=== PATIENT | female | born 1985 | race Caucasian/White ===

== ENCOUNTER 2023-10-09 08:59 | Emergency (ER) | payer OTHER, SELFPAY ==
[2023-10-09 09:19] VITALS: BP 151/81; PULSE 62; RESP 17; O2SAT 100; BMI 40.4
--- NOTE | 2023-10-09 11:41 | ED.SKABFB ---
HPI - Skin/Abscess/Foreign Bdy General Chief complaint: Skin/Abscess/Foreign Body Stated complaint: Cyst on genitals Time Seen by Provider: 10/09/23 11:41 Source: patient Mode of arrival: Ambulatory Limitations: no limitations History of Present Illness HPI narrative: 38-year-old female no reported medical issues on daily as her only medication. Patient complains of a sister area of swelling on the left labia minora. Patient states it started a couple days ago has become increasingly painful and larger. It started having some drainage this morning that she describes as sort of white and creamy with a little bit of blood. She did not have any improvement in pain when it started draining. She denies fevers or chills. No chest pain or shortness of breath, no abdominal back or flank pain. No nausea or vomiting. No difficulties with urination. She has had normal bowel movements. She states she is at the end of her menses. She has not had similar symptoms in the past. She did take some Tylenol last night which allowed her to sleep. She defers anything for pain currently. She states no prescription medications other than a vitamin. No known drug allergies. Denies any recent surgeries. No tobacco, no regular alcohol, no recreational drugs. Related Data Home Medications Medication Instructions Recorded Confirmed vits 75-iron 28 mg-folic 1 pkg PO DAILY 10/09/23 10/09/23 acid 800 mcg-omega3 440 mg oral pack Previous Rx's Medication Instructions Recorded sulfamethoxazole 800 1 tab PO Q12H #14 tabs 10/09/23 mg-trimethoprim 160 mg tablet (Bactrim DS) tramadol 50 mg tablet 50 mg PO Q6H PRN pain #10 tabs 10/09/23 Allergies Allergy/AdvReac Type Severity Reaction Status Date / Time No Known Drug Allergies Allergy Verified 10/09/23 09:22 Review of Systems Review of Systems ROS Unobtainable: All systems reviewed & are unremarkable except as noted in HPI and below Patient History Medical History Solar lentigo Social History Smoking Status: Never smoker Smoking Status: Never smoker alcohol intake frequency: other Substance Use Type: does not use Exam Narrative Exam Narrative: GENERAL: Alert and oriented x three, female in mild distress. HEENT: Head normocephalic, atraumatic, EOMI, pupils reactive, face symmetric, moist mucous membranes NECK: Supple, full range of motion CARDIOVASCULAR: Regular rate and rhythm without murmurs, rubs or gallops. RESPIRATORY: Breath sounds equal bilaterally, no wheezes rales or rhonchi. ABDOMEN: Soft, nontender. Normoactive bowel sounds all 4 quadrants. No guarding or rebound, rigidity, no mass : No CVA tenderness. Female: external vaginal exam shows swelling of the left labia minora, there is an area of fluctuance at the 9 o'clock position that is tender to touch. There is some generalized swelling tracking upwards along the edge. Patient does not have any other tenderness of the vulva or internal vagina. There is a few small punctate areas that are draining purulent fluid but no open area of drainage. no vaginal bleeding, no discharge, EXTREMITIES: Normal range of motion, no clubbing or edema. Neurovascularly intact. NEUROLOGICAL: Cranial nerves II through XII grossly intact. Normal gait. SKIN: Warm, dry, no petechiae, no rashes or lesions other than noted above. Initial Vital Signs Initial Vital Signs: Vital Signs Pulse Rate 62 10/09/23 09:19 Respiratory Rate 17 10/09/23 09:19 Blood Pressure 151/81 H 10/09/23 09:19 Pulse Oximetry 100 10/09/23 09:19 Oxygen Delivery Method Room Air 10/09/23 09:19 Procedures Abscess I/D I&D #1: Site: bartholin's gland (left) Side (if applicable): left Sedation/analgesia: none Local Anesthetic: lidocaine 2% Amount of anesthesia used (mL): 4 Technique: incised with #11 blade Amount of fluid expressed (mL): 10 Irrigation: Yes Packing used?: none Course Orders Ordered: Discontinued Medications Lidocaine/Prilocaine (Lidocaine/Prilocaine 5 Gm) 5 gm TOP NOW ONE Stop: 10/09/23 12:14 Last Admin: 10/09/23 12:24 Dose: 5 gm Documented By: ISABEL Vital Signs Vital signs: Vital Signs - 8 hr 10/09/23 09:19 10/09/23 14:10 Pulse Rate 62 71 Respiratory Rate 17 18 Blood Pressure 151/81 H 119/65 Pulse Oximetry 100 98 Oxygen Delivery Method Room Air Room Air MDM - Skin/Abscess/Foreign Bdy MDM Narrative Medical decision making narrative: 38-year-old female who appears to have a infected Bartholin gland cyst on her left. Patient gave verbal consent and had incision and drainage and started on oral antibiotics. Patient had I&D with purulent fluid Bartholin gland cyst which appears infected. Patient is started on oral antibiotics script for short term pain medication. Discussed return precautions. Need for follow-up long-term treatment including possible marsupialization. Discharge Plan Departure Patient Disposition: Home Clinical Impression: Abscess of Bartholin's gland Instructions: DI for Bartholin Gland Cyst Activity Restrictions/Additional Instructions: Follow up in the next week. Please call to set up an appointment. Bartholin gland cyst or abscess his can reoccur and we will sometimes be treated with a procedure called marsupialization, follow up with OBGYN to see if you need to be candidate for this. You can take Tylenol up to a 1000 mg every 6 hours and/or ibuprofen up to 600 mg every 6 hours as needed for pain. If inadequate for pain you can take 1-2 tablets of tramadol every 6 hours as needed for pain. This medication can make you sleepy do not drive, perform hazardous activities or make any major decisions while taking it. This medication will make you constipated please take a stool softener once to twice daily until stools are soft and regular. Use warm compresses to the affected areas or Sitz baths 3-4 times daily. Take oral antibiotics until completed. Prescription sent to [facility] in [place] Please return for fevers increasing redness, swelling, rapidly worsening drainage or bleeding, new abdominal back or flank pain, difficulty with urination or other new or concerning changes. Prescriptions: New sulfamethoxazole-trimethoprim [Bactrim DS] 800-160 mg tablet 1 tab PO Q12H Qty: 14 0RF tramadol 50 mg tablet 50 mg PO Q6H PRN (Reason: pain) Qty: 10 0RF No Action Daily 28-800-440 mg-mcg-mg Combo Pack 1 pkg PO DAILY Referrals: Aisha Hernandez MD [Primary Care Provider] - Kristine Del Cid MD [Physician] - Stand Alone Forms: Patient Portal/API
[2023-10-09] MEDS: LIDOCAINE/PRILOCAINE 5 GM TOP (12:24)
[2023-10-09 14:10] VITALS: BP 119/65; PULSE 71; RESP 18; O2SAT 98
== END 2023-10-09 14:29 | disposition home or self-care (01) ==
PROVIDERS: Emergency Provider Emergency Medicine; PCP Family Medicine
DX: N75.1 Abscess of Bartholin's gland (principal)
CPT/HCPCS: 56420; 99282; 99283

== ENCOUNTER → 2023-10-30 12:12 | Outpatient (CLI) | payer OTHER, SELFPAY ==
[2023-10-30 13:15] LABS: Add Manual Diff / Slide Review NO; Basophils Absolute Auto 100 /uL (0-100); Basophils Percent Auto 0.7 % (0-2); Eosinophils Absolute Auto 300 /uL (0-450); Eosinophils Percent Auto 3.6 % (2-4); Hematocrit 38.6 % (36-46); Lymphocytes Absolute Auto 2500 /uL (1100-4500); Lymphocytes Percent Auto 31.2 % (25-40); Mean Corpuscular HGB Conc 33.6 % (30-36); Mean Corpuscular Hemoglobin 30.1 PG (26-34); Mean Corpuscular Volume 89.5 fL (80-100); Monocytes Absolute Auto 500 /uL (0-900); Monocytes Percent Auto 5.8 % (3-14); Neutrophils Absolute Auto 4700 /uL (1500-7000); Neutrophils Percent Auto 58.7 % (50-75); Platelet Count 307 X10^3/uL (150-400); Red Blood Cell Count 4.32 X10^6/uL (4.0-5.2); Red Cell Distribution Width 13.5 % (11.6-14.8)
== END ==
LOC: LAB 12:14
PROVIDERS: PCP Family Medicine; Referring Provider Family Medicine; Visit Provider Family Medicine
DX: Z13.1 Encounter for screening for diabetes mellitus (principal); D64.9 Anemia, unspecified
CPT/HCPCS: 36415; 83036; 85025

== ENCOUNTER → 2024-01-24 13:14 | Outpatient (CLI) | payer OTHER, SELFPAY ==
[2024-01-24 17:08] LABS: HCG Quantitative /Beta subunit < 2.39 mIU/mL
== END ==
PROVIDERS: PCP Family Medicine; Referring Provider Family Medicine; Visit Provider Family Medicine
DX: O20.0 Threatened abortion (principal)
CPT/HCPCS: 36415; 84702

== ENCOUNTER → 2024-03-05 15:27 | Outpatient (CLI) | payer OTHER, SELFPAY ==
[2024-03-05 17:31] LABS: Add Manual Diff / Slide Review NO; Basophils Absolute Auto 100 /uL (0-100); Basophils Percent Auto 0.5 % (0-2); Eosinophils Absolute Auto 400 /uL (0-450); Eosinophils Percent Auto 4.2 % (2-4); Hematocrit 41.1 % (36-46); Hemoglobin 13.6 g/dL (12.0-16.0); Lymphocytes Absolute Auto 3200 /uL (1100-4500); Lymphocytes Percent Auto 31.1 % (25-40); Mean Corpuscular Hemoglobin 29.3 PG (26-34); Mean Corpuscular Volume 88.6 fL (80-100); Monocytes Absolute Auto 500 /uL (0-900); Monocytes Percent Auto 5.2 % (3-14); Neutrophils Absolute Auto 6100 /uL (1500-7000); Platelet Count 361 X10^3/uL (150-400); Red Blood Cell Count 4.64 X10^6/uL (4.0-5.2); Red Cell Distribution Width 13.2 % (11.6-14.8); White Blood Cell Count 10.4 X10^3/uL (4.5-11.0)
[2024-03-05 18:31] LABS: Follicle Stimulating Hormone 2.98 mIU/mL
[2024-03-05 18:40] LABS: Free T4, Direct Thyroxine 1.05 ng/dL (0.78-2.19)
[2024-03-05 18:41] LABS: Prolactin 13.7 ng/mL (3.0-18.6)
[2024-03-05 18:46] LABS: Estradiol, Total 76.8 pg/mL
[2024-03-05 18:54] LABS: Thyroid Stimulating Hormone 1.86 uIU/mL (0.47-4.68)
== END ==
PROVIDERS: PCP Family Medicine; Referring Provider Family Medicine; Visit Provider Family Medicine
DX: Z31.69 Encounter for other general counseling and advice on procreation (principal); N97.9 Female infertility, unspecified
CPT/HCPCS: 36415; 82397; 82670; 83001; 84146; 84439; 84443; 85025

== ENCOUNTER → 2024-04-18 10:51 | Outpatient (CLI) | payer OTHER, SELFPAY ==
[2024-04-18 12:14] LABS: HCG Quantitative /Beta subunit 9715.3 mIU/mL
== END ==
LOC: LAB 10:51
PROVIDERS: PCP Family Medicine; Referring Provider Family Medicine; Visit Provider Family Medicine
DX: Z34.90 Encounter for supervision of normal pregnancy, unspecified, unspecified trimester (principal)
CPT/HCPCS: 36415; 84702

== ENCOUNTER → 2024-04-20 12:46 | Outpatient (CLI) | payer OTHER, SELFPAY ==
[2024-04-20 14:26] LABS: HCG Quantitative /Beta subunit 16001 mIU/mL
== END ==
PROVIDERS: PCP Family Medicine; Referring Provider Family Medicine; Visit Provider Family Medicine
DX: Z32.00 Encounter for pregnancy test, result unknown (principal)
CPT/HCPCS: 36415; 84702

== ENCOUNTER 2024-04-21 12:24 | Emergency (ER) | payer OTHER, SELFPAY ==
[2024-04-21 12:29] VITALS: BP 110/57; PULSE 80; RESP 16; TEMP 36.6; O2SAT 100; BMI 40.6
--- NOTE | 2024-04-21 12:53 | DI.US.S_ITS ---
PROCEDURE: US OB <= 14 WEEKS FETUS INDICATIONS: 6 weeks OUTSIDE/PRIOR DATING DATA: Last menstrual period (LMP): 03/10/2024. LMP-based estimated date of delivery (MEL): 12/15/2024. First dating scan (date and location): 04/21/2024. Estimated date of delivery (MEL) from first dating scan: Applicable. TECHNIQUE: Real-time scanning was performed of the fetus and maternal pelvic organs, with image documentation. Endovaginal scanning was also performed to better visualize the fetus and maternal ovaries. COMPARISON: None. FINDINGS: Embryo: An intrauterine gestational sac is seen, measuring 1.2 cm, which corresponds to an estimated gestational age of 6 weeks 0 days. There is a normal appearing yolk sac. No definite pole can be seen at this time. Maternal organs: A 4.5 cm right ovarian cyst is seen, without suspicious features. IMPRESSION: Intrauterine gestational sac, yet without a pole seen at this time. The imaging appearance is most consistent with a normal early . Close clinical followup, with serial beta-hCG and serial ultrasound are recommended, if clinically appropriate. We strive to produce accurate, complete, and clear reports of imaging services. To assist us in improving patient care, this report was composed using standard report templates and voice recognition software. Therefore, it may contain abnormal punctuation, insertions and/or omissions. Occasional wrong-word or sound-alike substitutions may occur. Though we review the report and make efforts to correct it, we do recommend that the report be read carefully in proper context to recognize any text inaccuracies. Dictated by: Speedy Chan M.D. on 04/21/2024 at 13:04 Approved by: Speedy Chan M.D. on 04/21/2024 at 13:06
[2024-04-21 13:13] LABS: Add Manual Diff / Slide Review NO; Basophils Absolute Auto 100 /uL (0-100); Basophils Percent Auto 0.7 % (0-2); Eosinophils Absolute Auto 400 /uL (0-450); Eosinophils Percent Auto 3.9 % (2-4); Hemoglobin 13.4 g/dL (12.0-16.0); Lymphocytes Absolute Auto 2700 /uL (1100-4500); Lymphocytes Percent Auto 28.1 % (25-40); Mean Corpuscular HGB Conc 32.7 % (30-36); Mean Corpuscular Hemoglobin 29.1 PG (26-34); Mean Corpuscular Volume 88.9 fL (80-100); Monocytes Absolute Auto 700 /uL (0-900); Monocytes Percent Auto 7.6 % (3-14); Neutrophils Absolute Auto 5700 /uL (1500-7000); Neutrophils Percent Auto 59.7 % (50-75); Platelet Count 348 X10^3/uL (150-400); Red Blood Cell Count 4.61 X10^6/uL (4.0-5.2); Red Cell Distribution Width 13.9 % (11.6-14.8); White Blood Cell Count 9.6 X10^3/uL (4.5-11.0)
[2024-04-21 13:20] LABS: Alanine Aminotransferase 19 IU/L (<35); Albumin 4.4 g/dL (3.5-5.0); Albumin Globulin Ratio 1.7 (1.0-2.8); Alkaline Phosphatase 53 U/L (38-126); Aspartate Aminotransferase 20 IU/L (14-36); BUN Creatinine Ratio 9.2 (6-22); Bilirubin Total 0.5 mg/dL (0.2-1.3); Blood Urea Nitrogen 7 mg/dL (7-17); Carbon Dioxide 25 mmol/L (22-32); Chloride 106 mmol/L (98-107); Estimated Glomerular Filt Rate > 60 mL/min (>60); Globulin 2.6 g/dL (1.7-4.1); Glucose 85 mg/dL (70-100); HEMOLYSIS < 15 (0-50); Potassium 4.1 mmol/L (3.4-5.1); Sodium 137 mmol/L (137-145)
[2024-04-21 14:01] LABS: HCG Quantitative /Beta subunit 21569 mIU/mL
[2024-04-21 14:02] LABS: RBC Urine 0-1/HPF (0-5/HPF); Urine Volume 10mL (spun); WBC Urine 0-1/HPF (0-5/HPF)
[2024-04-21 14:03] LABS: Bacteria Urine Few (2-10); Culture Indicated Urine Cult Not Indicated; Squamous Epithelial Cell Urine 0-1 /HPF (0-5/HPF)
[2024-04-21 14:17] VITALS: BP 108/66; PULSE 64; RESP 16; O2SAT 98
--- NOTE | 2024-04-21 14:18 | ED_ITS ---
HPI - General Adult General Chief complaint: Vaginal Bleeding Stated complaint: 6wks , Miscarraige Concerns Time Seen by Provider: 04/21/24 14:18 Source: patient Mode of arrival: Ambulatory History of Present Illness HPI narrative: 38-year-old female with OB history SAB 1, last menstrual period she believes was 03/10/2024, MEL 12/15/2024, believes she is about 6 weeks gestation, with care by Dr. Hernandez, has had vaginal spotting symptoms for 6 days, recent serum hormone level 9000 drawn 3 days ago, hormone level 16,000 yesterday. Now having increased vaginal spotting some of some cramping. No fevers or chills. Related Data Home Medications Medication Instructions Recorded Confirmed vits 75-iron 28 mg-folic 1 pkg PO DAILY 10/09/23 04/21/24 acid 800 mcg-omega3 440 mg oral pack coenzyme Q10 100 mg capsule 100 mg PO DAILY 04/21/24 04/21/24 (CoQ-10) fluticasone propionate 50 50 mcg intranasal DAILY 04/21/24 04/21/24 mcg/actuation nasal spray,suspension (Flonase Allergy Relief) loratadine 10 mg tablet (Claritin) 10 mg PO DAILY 04/21/24 04/21/24 omega-3 fatty acids PO 04/21/24 Allergies Allergy/AdvReac Type Severity Reaction Status Date / Time No Known Drug Allergies Allergy Verified 02/28/24 08:46 Patient History Medical History (Updated 04/21/24 @ 15:49 by Hansel Bowman MD) Infertility Solar lentigo Social History Smoking Status: Never smoker Smoking Status: Never smoker alcohol intake frequency: other Exam Narrative Exam Narrative: GENERAL: Well-developed patient, in mild distress. HEAD: Atraumatic. Normocephalic. EYES: Pupils equal round and reactive. Extraocular motions intact. No scleral icterus. No injection or drainage. ENT: Nose without bleeding, purulent drainage. Airway patent. NECK: Trachea midline. CARDIOVASCULAR: Regular rate and rhythm without murmurs, gallops, or rubs. RESPIRATORY: Clear to auscultation. Breath sounds equal bilaterally. No wheezes, rales, or rhonchi. GASTROINTESTINAL: Abdomen soft, non-tender, nondistended. EXTREMITIES: No edema or joint tenderness. NEURO: AOx3. Motor functions grossly nonfocal SKIN: No rash or erythema of visible areas Initial Vital Signs Initial Vital Signs: Vital Signs Temperature 97.8 F 04/21/24 12:29 Pulse Rate 80 04/21/24 12:29 Respiratory Rate 16 04/21/24 12:29 Blood Pressure 110/57 L 04/21/24 12:29 Pulse Oximetry 100 04/21/24 12:29 Oxygen Delivery Method Room Air 04/21/24 12:29 Course Orders Ordered: ED Orders 04/21/24 12:53 US OB <= 14 weeks fetus Stat 04/21/24 13:00 Complete Blood Count AUTO DIFF Stat Comprehensive Metabolic Panel Stat HCG Quantitative /Beta subunit Stat 04/21/24 13:26 Urine Microscopic Stat 04/21/24 14:05 Type and Screen Stat Vital Signs Vital signs: Vital Signs - 8 hr 04/21/24 12:29 04/21/24 14:17 04/21/24 15:57 Temperature 97.8 F Pulse Rate 80 64 72 Respiratory Rate 16 16 16 Blood Pressure 110/57 L 108/66 107/62 Pulse Oximetry 100 98 99 Oxygen Delivery Method Room Air Room Air Room Air Medical Decision Making Lab Data Lab results reviewed: Yes I reviewed the patient's lab results. Lab results narrative: White blood cell count 9600, hemoglobin 13.4, platelets adequate. Basic metabolic panel unremarkable. Serum hCG today 81493 04/21/24 13:00 04/21/24 13:00 Labs: Lab Results 04/21/24 04/21/24 04/21/24 Range/Units 13:00 13:26 14:05 WBC 9.6 (4.5-11.0) X10^3/uL RBC 4.61 (4.0-5.2) X10^6/uL Hgb 13.4 (12.0-16.0) g/dL Hct 41.0 (36-46) % MCV 88.9 (80-100) fL MCH 29.1 (26-34) PG MCHC 32.7 (30-36) % RDW 13.9 (11.6-14.8) % Plt Count 348 (150-400) X10^3/uL Neut % (Auto) 59.7 (50-75) % Lymph % (Auto) 28.1 (25-40) % [place] % (Auto) 7.6 (3-14) % Eos % (Auto) 3.9 (2-4) % Baso % (Auto) 0.7 (0-2) % Neut # (Auto) 5700 (9932-2819) /uL Lymph # (Auto) 2700 (0719-9530) /uL [place] # (Auto) 700 (0-900) /uL Eos # (Auto) 400 (0-450) /uL Baso # (Auto) 100 (0-100) /uL Sodium 137 (137-145) mmol/L Potassium 4.1 (3.4-5.1) mmol/L Chloride 106 (98-107) mmol/L Carbon Dioxide 25 (22-32) mmol/L BUN 7 (7-17) mg/dL Creatinine 0.76 (0.52-1.04) mg/dL Estimated GFR > 60 (>60) mL/min BUN/Creatinine Ratio 9.2 (6-22) Glucose 85 (70-100) mg/dL Calcium 9.0 (8.4-10.2) mg/dL Total Bilirubin 0.5 (0.2-1.3) mg/dL AST 20 (14-36) IU/L ALT 19 (<35) IU/L Alkaline Phosphatase 53 (38-126) U/L Total Protein 7.0 (6.3-8.2) g/dL Albumin 4.4 (3.5-5.0) g/dL Globulin 2.6 (1.7-4.1) g/dL Albumin/Globulin Ratio 1.7 (1.0-2.8) HCG, Quant 70105 mIU/mL Urine RBC 0-1/hpf (0-5/HPF) Urine WBC 0-1/hpf (0-5/HPF) Ur Squamous Epith Cells 0-1 /hpf (0-5/HPF) Urine Bacteria Few (2-10) H (None) Ur Culture Indicated? Cult not indicated Vol Urine Centrifuged 10ml (spun) Blood Type A Positive Antibody Screen Negative Urine Dip Bedside Urine Glucose Negative Bedside Urine Bilirubin - Negative Bedside Urine Ketone - Negative Urine Specific [place] 1.015 Bedside Urine Occult Blood + Bedside Urine pH 6.0 Bedside Urine Protein - Negative Bedside Urine Urobilinogen - Negative Bedside Urine Nitrite - Negative Bedside Urine Leukocytes - Negative Esterase Point of care testing: Urine Dip Bedside Urine Glucose Negative Bedside Urine Bilirubin - Negative Bedside Urine Ketone - Negative Urine Specific [place] 1.015 Bedside Urine Occult Blood + Bedside Urine pH 6.0 Bedside Urine Protein - Negative Bedside Urine Urobilinogen - Negative Bedside Urine Nitrite - Negative Bedside Urine Leukocytes - Negative Esterase Imaging Data Pelvic ultrasound: Radiologist's Impression: [address] [id number] Ultrasound Report Signed Patient: Zuleima Ingram MR#: [id number] : 1985 Acct:[id number] Age/Sex: 38 / F Date of Service: 04/21/24 Loc: ED Accession Number: [id number] Procedure: US OB <= 14 weeks fetus Ordering Provider: Hansel Bowman MD PROCEDURE: US OB <= 14 WEEKS FETUS INDICATIONS: 6 weeks OUTSIDE/PRIOR DATING DATA: Last menstrual period (LMP): 03/10/2024. LMP-based estimated date of delivery (MEL): 12/15/2024. First dating scan (date and location): 04/21/2024. Estimated date of delivery (MEL) from first dating scan: Applicable. TECHNIQUE: Real-time scanning was performed of the fetus and maternal pelvic organs, with image documentation. Endovaginal scanning was also performed to better visualize the fetus and maternal ovaries. COMPARISON: None. FINDINGS: Embryo: An intrauterine gestational sac is seen, measuring 1.2 cm, which corresponds to an estimated gestational age of 6 weeks 0 days. There is a normal appearing yolk sac. No definite pole can be seen at this time. Maternal organs: A 4.5 cm right ovarian cyst is seen, without suspicious features. IMPRESSION: Intrauterine gestational sac, yet without a pole seen at this time. The imaging appearance is most consistent with a normal early . Close clinical followup, with serial beta-hCG and serial ultrasound are recommended, if clinically appropriate. We strive to produce accurate, complete, and clear reports of imaging services. To assist us in improving patient care, this report was composed using standard report templates and voice recognition software. Therefore, it may contain abnormal punctuation, insertions and/or omissions. Occasional wrong-word or sound-alike substitutions may occur. Though we review the report and make efforts to correct it, we do recommend that the report be read carefully in proper context to recognize any text inaccuracies. Dictated by: Speedy Chan M.D. on 04/21/2024 at 13:04 Approved by: Speedy Chan M.D. on 04/21/2024 at 13:06 [facility] Narrative Medical decision making narrative: 38-year-old female current believed to be 6 weeks gestation, recent days spotting, hCG levels as an outpatient were 9000 and then 16,000, having increased spotting, no fevers, no abdominal cramping. Pads not saturated. No dizziness. Believes her blood type/Rh to be A positive, confirmed on screening lab from nursing. Hb 13.4 noted. [place] [address]. Pelvic ultrasound ordered from triage Pelvic Ultrasound shows intrauterine sac 1.2 cm, correlates to a gestational age 6 weeks 0 days. Normal-appearing yolk sac. No hemorrhage associated. There is also incidental right ovarian cyst 4.5 cm without suspicious features. See radiology report. Case discussed with Dr. Anderson, cross covering for PCP Dr. Hernandez, she will order interim serum hCG in 3 more days, can discharge home, with follow up as an outpatient, with return precautions warnings. Copy ultrasound given to the patient with explanation. She is aware that there is an hCG ordered 3 more days but she will be out of town. Consider obtaining hCG when she is in the other location. Return to care precautions discussed. Copy of her labs also given, should she need to present these to a outside provider in the next few days. Otherwise follow up with her regular OB provider, consider ultrasound in 10 days. Discharged home Discharge Plan Departure Patient Disposition: Home Clinical Impression: Threatened miscarriage Activity Restrictions/Additional Instructions: Early with some vaginal spotting, ultrasound today shows 6 weeks intrauterine sized gestational sac, about weight expect for size based on last menstrual period dates at this time. There was also a single simple appearing ovarian cyst on ultrasound, without any rupture or involution or free fluid. No inflammatory/infectious changes noted. Your hormone level today was [address], increased from recent reported level 19,000 yesterday, and further increased from 16,000 a few days earlier. Hormone levels are increasing, you can have further checking of your hormone level in 3 days, cross cover physician today Dr. Francis ordered one if you are in the area, however you believe you will be out of town at that time. Consider repeat blood draw at that time in 72 hours if possible. Copy of your report provided. Copy of your labs provided. She suggested also consideration for repeat ultrasound in 10 days. Return earlier to this/nearest emergency department for any change worsening symptoms or any concerns prior Prescriptions: No Action Daily 28-800-440 mg-mcg-mg Combo Pack 1 pkg PO DAILY fluticasone propionate [Flonase Allergy Relief] 50 mcg/actuation [place],Suspension 50 mcg INTRANASAL DAILY loratadine [Claritin] 10 mg Tablet 10 mg PO DAILY coenzyme Q10 [CoQ-10] 100 mg Capsule 100 mg PO DAILY Fish Oil Capsule PO Referrals: Aisha Hernandez MD [Primary Care Provider] - Arlet Jose MD [Physician] - Stand Alone Forms: Patient Portal/API/Survey
[2024-04-21 15:57] VITALS: BP 107/62; PULSE 72; RESP 16; O2SAT 99
== END 2024-04-21 15:56 | disposition home or self-care (01) ==
PROVIDERS: Emergency Provider Emergency Medicine; PCP Family Medicine
DX: O20.0 Threatened abortion (principal); Z3A.01 Less than 8 weeks gestation of pregnancy
CPT/HCPCS: 36415; 76801; 80053; 81003; 81015; 84702; 85025; 86850; 86900; 86901; 99283

== ENCOUNTER → 2024-04-29 16:25 | Outpatient (CLI) | payer OTHER, SELFPAY ==
[2024-04-29 17:47] LABS: HCG Quantitative /Beta subunit 51919 mIU/mL
== END ==
PROVIDERS: PCP Family Medicine; Referring Provider Student in an Organized Health Care Education/Training Program; Visit Provider Student in an Organized Health Care Education/Training Program
DX: N93.9 Abnormal uterine and vaginal bleeding, unspecified (principal)
CPT/HCPCS: 36415; 84702

== ENCOUNTER → 2024-05-02 15:10 | Outpatient (CLI) | payer OTHER, SELFPAY ==
--- NOTE | 2024-05-02 15:11 | DI.US.S_ITS ---
PROCEDURE: US OB <= 14 WEEKS FETUS INDICATIONS: fup first trimester bleeding, dating confirmation OUTSIDE/PRIOR DATING DATA: Last menstrual period (LMP): 03/10/2024. LMP-based estimated date of delivery (MEL): 12/15/2024. First dating scan (date and location): 04/21/2024. Estimated date of delivery (MEL) from first dating scan: 12/15/2024. TECHNIQUE: Real-time scanning was performed of the fetus and maternal pelvic organs, with image documentation. Endovaginal scanning was also performed to better visualize the fetus and maternal ovaries. COMPARISON: [facility], OB <= 14 WEEKS FETUS, 04/21/2024, 13:29. FINDINGS: Embryo: pole is identified with crown-rump length measuring 1.1 cm, consistent with 7 weeks and 2 days. Heart rate: 141 beats per minute Maternal organs: Simple cyst within the right ovary measuring 3.1 cm. The left ovary is not seen. IMPRESSION: Single live intrauterine consistent with 7 weeks and 2 days. We strive to produce accurate, complete, and clear reports of imaging services. To assist us in improving patient care, this report was composed using standard report templates and voice recognition software. Therefore, it may contain abnormal punctuation, insertions and/or omissions. Occasional wrong-word or sound-alike substitutions may occur. Though we review the report and make efforts to correct it, we do recommend that the report be read carefully in proper context to recognize any text inaccuracies. Dictated by: Abhinav Hernandez M.D. on 05/03/2024 at 8:57 Approved by: Abhinav Hernandez M.D. on 05/03/2024 at 8:58
== END ==
LOC: US 15:10
PROVIDERS: PCP Family Medicine; Referring Provider Family Medicine; Visit Provider Family Medicine
DX: O20.0 Threatened abortion (principal); Z3A.01 Less than 8 weeks gestation of pregnancy
CPT/HCPCS: 76801; 76817

== ENCOUNTER → 2024-06-07 16:14 | Outpatient (CLI) | payer OTHER, SELFPAY ==
[2024-06-07 17:18] LABS: Natera Collection Specimen Collected
== END ==
PROVIDERS: PCP Family Medicine; Referring Provider Family Medicine; Visit Provider Family Medicine
DX: O09.521 Supervision of elderly multigravida, first trimester (principal)
CPT/HCPCS: 36415

== ENCOUNTER → 2024-08-05 12:03 | Outpatient (CLI) | payer OTHER, SELFPAY ==
--- NOTE | 2024-08-05 12:03 | DI.US.S_ITS ---
PROCEDURE: US OB >= 14 WEEKS FETUS INDICATIONS: anatomy US OUTSIDE/PRIOR DATING DATA: Last menstrual period (LMP): 03/10/2024. LMP-based estimated date of delivery (MEL): 12/15/2024. First dating scan (date and location): 04/21/2024. Estimated date of delivery (MEL) from first dating scan: 12/15/2024. The calculations are made using the working MEL of 12/15/2024. TECHNIQUE: Real-time scanning was performed of the fetus, with image documentation and biometric measurements. Endovaginal scanning: No COMPARISON: None. FINDINGS: General: A single living intrauterine gestation is present. Presentation: Vertex. Placenta: Placental position is right lateral , without previa. Amniotic fluid index: 16.2 cm, normal range is 5-24 cm. Single deepest vertical pocket is 6.7 cm. heart rate: 132 beats per minute. Maternal cervical canal: 4.8 cm long. Normal lower limit is 2.5 cm. biometrics: Biparietal diameter: 5.0 cm, 21 week 1 day Head circumference: 17.9 cm, 20 week 2 day Abdominal circumference: 15.7 cm, 20 week 6 day Femur length: 3.4 cm, 20 week 5 day Clinically estimated gestational age: 21 week 1 day Composite gestational age from present scan: 20 week 5 day Estimated weight and percentile: 377 g, 27 percentile Anatomic survey: Neuro: Ventricles are non-dilated at less than 10 mm. Cisterna magna is normal at 3-11 mm. Cerebellum is normal in size and morphology. Nuchal skin fold: Normal at less than 6 mm between 14-21 weeks gestational age. Face: Not well seen Spine: No evidence for spina bifida. Heart: 4-chambered heart is present, with normal ventricular outflow not well seen. Diaphragm: Diaphragm is intact. Stomach: Left-sided stomach is present. Kidneys: No hydronephrosis. Normal is less than 5 mm in 2nd trimester, less than 7 mm in 3rd trimester. Cord: 3-vessel cord has orthotopic insertion. Bladder: Normal in size. Extremities: All 4 extremities identified. IMPRESSION: Single live intrauterine consistent with 20 week 5 day gestation. Facial profile and cardiac outflow tracks are not well seen. Remainder of the anatomic survey is within normal limits. Approved by: Dereck Ward M.D. on 08/05/2024 at 18:26
== END ==
PROVIDERS: PCP Family Medicine; Referring Provider Family Medicine; Visit Provider Family Medicine
DX: Z34.92 Encounter for supervision of normal pregnancy, unspecified, second trimester (principal); Z3A.20 20 weeks gestation of pregnancy
CPT/HCPCS: 76811

== ENCOUNTER → 2024-08-15 15:22 | Outpatient (CLI) | payer OTHER, SELFPAY ==
--- NOTE | 2024-08-15 15:23 | DI.US.S_ITS ---
PROCEDURE: US OB LIMITED INDICATIONS: cardiac outflow tracts not well seen in last US OUTSIDE/PRIOR DATING DATA: The calculations are made using the MEL of 12/15/2024. TECHNIQUE: Real-time scanning was performed of the fetus, with image documentation. Endovaginal scanning: Not performed COMPARISON: [facility], OB >= 14 WEEKS FETUS, 08/05/2024, 12:22. FINDINGS: A single living intrauterine gestation is present. Presentation: Vertex. Placenta: Placental position is right, without previa. There is a gap with a thin connection between the superior and inferior mid placenta. Amniotic fluid index: 17.9 cm, normal range is 5-24 cm. Single deepest vertical pocket is 5.2 cm. heart rate: 145 beats per minute. Maternal cervical canal: 4.7 cm long. Normal lower limit is 2.5 cm. Clinically estimated gestational age: 22 weeks, 4 days Cardiac outflow tracks and profile appear within normal limits. IMPRESSION: 1. Single live intrauterine consistent with 22 weeks and 4 days. 2. Cardiac outflow tracts and facial profile appear within normal limits. Dictated by: Abhinav Hernandez M.D. on 08/15/2024 at 19:52 Approved by: Abhinav Hernandez M.D. on 08/15/2024 at 19:56
== END ==
PROVIDERS: PCP Family Medicine; Referring Provider Family Medicine; Visit Provider Family Medicine
DX: Z34.92 Encounter for supervision of normal pregnancy, unspecified, second trimester (principal); Z3A.22 22 weeks gestation of pregnancy
CPT/HCPCS: 76815

== ENCOUNTER → 2024-09-03 14:34 | Outpatient (CLI) | payer OTHER, SELFPAY ==
[2024-09-03 16:29] LABS: Rubella Antibody IgG 24.3 IU/mL (>15)
[2024-09-03 16:46] LABS: HIV 1 & 2 Ab/Ag 4th Gen Combo NEGATIVE (NEGATIVE); Hep C Virus Ab w/Reflex Quant NEGATIVE s/c (NEGATIVE)
[2024-09-03 17:26] LABS: Urine N gonorrhoeae NOT DETECTED
[2024-09-03 17:28] LABS: Urine Chlamydia NOT DETECTED
== END ==
PROVIDERS: PCP Family Medicine; Referring Provider Family Medicine; Visit Provider Family Medicine
DX: Z34.01 Encounter for supervision of normal first pregnancy, first trimester (principal)
CPT/HCPCS: 86592; 86762; 86787; 86803; 86850; 86900; 86901; 87389; 87491; 87591

== ENCOUNTER → 2024-09-10 12:06 | Outpatient (CLI) | payer OTHER, SELFPAY ==
[2024-09-10 15:00] LABS: GTT (PREG) 1 Hour PP 50gm Dose 109 mg/dL (76-139)
== END ==
PROVIDERS: PCP Family Medicine; Referring Provider Family Medicine; Visit Provider Family Medicine
DX: Z34.01 Encounter for supervision of normal first pregnancy, first trimester (principal)
CPT/HCPCS: 36415; 82950

== ENCOUNTER 2024-10-17 14:31 | Outpatient (CLI) | payer OTHER, SELFPAY ==
--- NOTE | 2024-10-17 15:06 | PM.OBTRLD ---
Visit Information Visit Information Date of evaluation: 10/17/24 Primary OB Provider: Aisha Hernandez Comments/Additional reasons for admission: Pt seen for NST due to decreased movement. Vital Signs Vital Signs: Temp- 36.9C BP- 115/54 P: 86 PFSH Medical History (Updated 05/06/24 @ 00:00 by ) Infertility Solar lentigo Evaluation Evaluation Baseline heart rate: 150 Variability: Moderate (6-25) monitor accelerations: Present Monitor Decelerations: Absent Contraction Frequency (minutes): 0 Category of Tracing: Reactive Status: Category l Diagnosis, Plan/Disposition Plan/Disposition Plan: 39 yo presenting at 31w4d for decreased movement. NST reassuring, pt dc home wtih plans fo rf/up next week for routine OB apt or sooner for change in sx - NST reactive - ok for d/c home OB Disposition: home
== END 2024-10-17 15:10 | disposition home or self-care (01) ==
LOC: OB 10-18 06:36
PROVIDERS: PCP Family Medicine; Referring Provider Family Medicine; Visit Provider Family Medicine
DX: O36.8130 Decreased fetal movements, third trimester, not applicable or unspecified (principal); Z3A.31 31 weeks gestation of pregnancy
CPT/HCPCS: 59025; G0378; G0379

== ENCOUNTER → 2024-11-21 17:24 | Outpatient (CLI) | payer OTHER, SELFPAY ==
[2024-11-22 13:00] LABS: Strep Grp B PCR POS for Grp B Strep
== END ==
PROVIDERS: PCP Family Medicine; Visit Provider Family Medicine
DX: Z36.85 Encounter for antenatal screening for Streptococcus B (principal)
CPT/HCPCS: 87653

== ENCOUNTER → 2025-01-21 12:43 | Outpatient (CLI) | payer OTHER, SELFPAY ==
--- NOTE | 2025-01-21 12:48 | DI.CT.S_ITS ---
PROCEDURE: CT SINUS SCREEN WO CON INDICATIONS: Chronic pansinusistis TECHNIQUE: Noncontrast 3.0 mm axial images acquired from the frontal sinuses to the mid- sella, with coronal and sagittal reformats. For radiation dose reduction, the following was used: automated exposure control, adjustment of mA and/or kV according to patient size. COMPARISON: None. FINDINGS: Image quality: Excellent. Maxillary Sinuses: No bony remodeling or destruction. Sinuses are clear. Ethmoid Air Cells: No bony remodeling or destruction. Sinuses are clear. Sphenoid Sinuses: No bony remodeling or destruction. Sinuses are clear. Frontal Sinuses: No bony remodeling or destruction. Sinuses are clear. Ostiomeatal Complexes: Ostiomeatal complexes are patent. No Geraldine cells. Miscellaneous: Visualized intra-orbital contents are normal. No yohannes bullosa or paradoxical turbinate curvature. No nasal septal deviation. IMPRESSION: The paranasal sinuses are clear. Dictated by: Abhinav Hernandez M.D. on 01/21/2025 at 13:40 Approved by: Abhinav Hernandez M.D. on 01/21/2025 at 13:43
== END ==
LOC: CT 12:44
PROVIDERS: PCP Family Medicine; Referring Provider Otolaryngology; Visit Provider Otolaryngology
DX: J01.41 Acute recurrent pansinusitis (principal); J32.4 Chronic pansinusitis; R09.82 Postnasal drip
CPT/HCPCS: 70486